=== PATIENT | male | born 1965 | race Hispanic/Latino ===

== ENCOUNTER 2017-11-03 14:20 | Emergency (ER) | payer OTHER ==
[2017-11-03 14:53] VITALS: BP 118/65; PULSE 65; RESP 20; TEMP 97.6; O2SAT 98
[2017-11-03] MEDS ORDERED: Lactated Ringer's 1,000 ML IV STA (17:22)
[2017-11-03] MEDS ORDERED: Sodium Chloride 0.9% 1,000 ML IV STA (17:24)
[2017-11-03 17:49] LABS: BASO % 0.3 % (0.0-2.0); EOS # 0.1 K/uL (0.0-0.7); EOS % 0.9 % (0.0-4.0); HEMOGLOBIN 15.8 g/dL (12.0-18.0); LYMPH # 0.3 K/uL (1.0-4.3); LYMPH % 3.2 % (20.0-40.0); MEAN CORPUSCULAR HGB CONC 33.8 g/dL (33.0-37.0); MEAN PLATELET VOLUME 7.6 fL (7.2-11.7); MONO # 0.4 K/uL (0.0-0.8); MONO % 4.1 % (0.0-10.0); NEUT # 8.3 K/uL (1.8-7.0); NEUT % 91.5 % (50.0-75.0); PLATELET COUNT 282 K/uL (130-400); RBC 5.26 Mil/uL (4.40-5.90); RED CELL DISTRIBUTION WIDTH 13.2 % (11.5-14.5); WHITE BLOOD COUNT 9.1 K/uL (4.8-10.8)
[2017-11-03 18:02] LABS: ALB/GLOB RATIO 1.3 (1.0-2.1); ALBUMIN 4.1 g/dL (3.5-5.0); ALT/SGPT 31 U/L (21-72); AST/SGOT 30 U/L (17-59); BLOOD UREA NITROGEN 22 mg/dL (9-20); CALCIUM 9.1 mg/dl (8.6-10.4); GFR AFRICAN-AMERICAN > 60; GFR NON-AFRICAN AMERICAN > 60; LIPASE 197 U/L (23-300)
--- NOTE | 2017-11-03 18:07 | C.PDOC ---
History Of Present Illness 52yo male, states he was visiting this area from another state and ate sushi last night, and this morning he had multiple episodes of nausea and vomiting. Patient decided to drive back home and per his , the patient had a syncopal episode in the car. She states the patient started sweating and was unresponsive for less than a minute and had an unusual facial expression. Patient states he feels better in the ER and denies any chest pain or shortness of breath. Time Seen by Provider: 11/03/17 17:00 Chief Complaint (Nursing): GI Problem History Per: Patient History/Exam Limitations: no limitations Current Symptoms Are (Timing): Better Past Medical History Reviewed: Historical Data, Nursing Documentation, Vital Signs Vital Signs: Last Vital Signs Temp 97.6 F 11/03/17 14:51 Pulse 65 11/03/17 14:51 Resp 20 11/03/17 14:51 BP 118/65 11/03/17 14:51 Pulse Ox 98 11/03/17 18:09 - Medical History PMH: No Chronic Diseases Surgical History: No Surg Hx Family History: States: No Known Family Hx - Social History Hx Alcohol Use: No Hx Substance Use: No Review Of Systems Except As Marked, All Systems Reviewed And Found Negative. Constitutional: Positive for: Sweats Gastrointestinal: Positive for: Vomiting, Diarrhea Neurological: Positive for: Other (syncopal episode) Physical Exam - Physical Exam Appears: Non-toxic, No Acute Distress Skin: Normal Color Head: Atraumatic, Normacephalic Eye(s): bilateral: Normal Inspection Neck: Normal ROM, Supple Chest: Symmetrical Cardiovascular: Rhythm Regular Respiratory: Normal Breath Sounds, No Wheezing Gastrointestinal/Abdominal: Normal Exam, Bowel Sounds, Soft, No Tenderness Back: Normal Inspection Extremity: Normal ROM Neurological/Psych: Oriented x3, Normal Speech, Normal Cognition, Normal Motor, Normal Sensation ED Course And Treatment - Laboratory Results Result Diagrams: 11/03/17 17:45 11/03/17 17:45 O2 Sat by Pulse Oximetry: 98 (RA) Pulse Ox Interpretation: Normal Progress Note: Labs significant for 15% bands. Patient looks and feels better. Tolerates po, orthostatic vitals are negative. Patient sts he missed his flight today and is trying to re book for tonight and is asking to be d/c home. The risk was explained to the patient, he was instructed to return to ED immediately if feel worse, to be well hydrated with sport drinks and to follow up with PMD tomorrow to repeat labs. Copies of labs were given to the patient. Medical Decision Making Medical Decision Making: Impression: Syncopal episode; vomiting and diarrhea Plan: -- EKG -- Labs -- Static vitals requested and are negative -- IV Fluids -- Zofran 4mg IVP -- Protonix 40mg IVP Disposition - Disposition Disposition: HOME/ ROUTINE Disposition Time: 19:00 Condition: IMPROVED Additional Instructions: Follow up with your PMD tomorrow to repeat blood work. Return to ED immediately if feel worse. Please drink plenty of fluid, preferably sport drinks with electrolytes. Prescriptions: Ondansetron [Zofran Odt] 1 - 2 tab PO .Q4-6H PRN #20 odt PRN Reason: Nausea/Vomiting Instructions: Food Poisoning (DC) Forms: Real Time Translation (Gu[place]an) - Clinical Impression Clinical Impression: Gastroenteritis - PA / DIRECTOR OF VOCATIONAL GUIDANCE / Resident Statement MD/DO has reviewed & agrees with the documentation as recorded. - Scribe Statement The provider has reviewed the documentation as recorded by the Scribe (Freda Lyn) Provider Attestation: All medical record entries made by the Scribe were at my direction and personally dictated by me. I have reviewed the chart and agree that the record accurately reflects my personal performance of the history, physical exam, medical decision making, and the department course for this patient. I have also personally directed, reviewed, and agree with the discharge instructions and disposition.
[2017-11-03 18:32] LABS: BANDS 15 % (0-2); LYMPHOCYTE 2 % (20-40); MONOCYTE 5 % (0-10); NEUTROPHIL 78 % (50-75); PLATELET ESTIMATE NORMAL (NORMAL); TOTAL CELLS COUNTED 100
[2017-11-03 18:33] LABS: LARGE PLATELETS PRESENT; MICROCYTOSIS SLIGHT; PLATELET CLUMPS PRESENT; SMUDGE CELLS PRESENT
--- NOTE | 2017-11-04 12:20 | CARD ---
APPROVED REPORT EKG Measurement Heart [id number] <Conclusion> Normal sinus rhythm Normal ECG
== END 2017-11-03 19:10 | disposition home or self-care (01) ==
LOC: C.ER 14:20
DX: K52.9 Noninfective gastroenteritis and colitis, unspecified (principal)
CPT/HCPCS: 80053; 83690; 85025; 93005; 96361; 96374; 96375; 99284; C9113; J2405; J7040; J7120